=== PATIENT | male | born 1955 | race Two or more races ===

== ENCOUNTER 2023-03-02 05:13 | Day surgery (SDC) | payer MEDICARE, OTHER ==
[2023-02-26 15:23] VITALS: BMI 31.4
[2023-03-02 11:29] VITALS: RESP 18
[2023-03-02] MEDS ORDERED: MIDAZOLAM HCL 2 MG/2 ML SINGLE DOSE VIAL ONE ×2 (14:18→14:30)
[2023-03-02] MEDS ORDERED: FENTANYL CITRATE/PF 50 MCG/ML VIAL ONE (14:18)
[2023-03-02] MEDS ORDERED: ONDANSETRON 4 MG/2 ML VIAL ONE (14:29)
[2023-03-02 19:02] VITALS: BP 149/89; PULSE 63; TEMP 97.9
== END 2023-03-02 17:05 | disposition home or self-care (01) ==
LOC: JASU-SURG 05:13
PROVIDERS: ATTEND Urology
PROC: 0TF4XZZ Fragmentation in Left Kidney Pelvis, External Approach (ICD-10-PCS; principal; 2023-03-02 13:00)
DX: N20.0 Calculus of kidney (principal)
CPT/HCPCS: 82962